=== PATIENT | female | born 1985 | race Caucasian/White ===

== ENCOUNTER 2017-01-08 21:30 | Emergency (ER) | payer OTHER ==
[~2017-01-08] VITALS: Ht 162.6 cm; Wt 65.6 kg
[~2017-01-08 21:30] MED LIST: AMX250CIP PO; AZAT50TA PO; AZTH50T GT; CYCL1DRO2 OP; DICY20TA10 PO; DICY20TA33 PO; DIPH25CA6 PO; DIPH25CA79 PO; DOCU100C8 PO; ERYT400T73 PO; ESCI10TA PO; ESTR1PAT53 TD; ETAN50PE SQ; FLC1T PO; HYDR-229 PO; HYDR-3708 PO; INSASP1U SQ; MAGN400O7 PO; METH10TA40 PO; METH2.5T IM; METO25TA60 PO; MTP25TSR PO; OMEP20CA12 PO; ONDA4TAB8 PO; ONDN4T PO; ORPH100T PO; ORPH30AM2 PO; PRED10TA PO; PRED1TAB PO; PREG100C2 PO; PREG50CA2 PO; PROM12.59 PO; SUMA25TA4 PO; TRAZ-28 PO; TRIA16.5 NS; [UNRECOGNIZED DRUG - CODE] PO; [UNRECOGNIZED DRUG - OTHER]; estrogen
--- OUTSIDE RECORDS SUMMARY | 2017-01-08 21:34 | XMS REPORT | Continuity Of Care Document ---
Author Author [facility] Organization [facility] Address [address] [place] [address] Phone Care Team Providers Care Gis Scientist Name Role Phone ANGEL ALEJANDRO, W Unavailable [phone] MAJOR ALEJANDRO, D AT ALLIE ALEJANDRO, M PP Results Lab Results Visit/Account #[id number] (November 19, 2016 2:29pm - November 19, 2016 6:44pm) Test Result Date/Time POCGL POCGL(70-110 MG/DL) 320 MG/DL November 19, 2016 2:42pm 71 MG/DL November 19, 2016 5:28pm POC PT/INR POC PROTHROMBIN TIME(11.0-13.6) 13.3 November 19, 2016 2:33pm POC INR 1.1 Result Comments: INR reference interval applies to patients on anticoagulant therapy. Suggested INR therapeutic range for oral anticoagulant therapy: (Stabilized anticoagulated patients) Routine Therapy: 2.0 to 3.0 Recurrent Myocardial Infarction: 2.5 to 3.5 Mechanical Prosthetic Valves: 2.5 to 3.5 November 19, 2016 2:33pm COMPLETE BLOOD COUNT WITH DIFF WHITE BLOOD COUNT(4.0-11.0 10E3/UL) 6.4 10E3/UL November 19, 2016 2:33pm RED BLOOD COUNT(4.00-5.20 10E6/UL) 4.49 10E6/UL November 19, 2016 2:33pm HEMOGLOBIN(12.0-16.0 G/DL) 13.8 G/DL November 19, 2016 2:33pm HEMATOCRIT(36.0-46.0 %) 43.7 % November 19, 2016 2:33pm MEAN CORPUSCULAR VOLUME(82.0-100.0 FL) 97.3 FL November 19, 2016 2:33pm MEAN CORPUSCULAR HEMOGLOBIN(26.0-34.0 PG) 30.7 PG November 19, 2016 2:33pm MEAN CORPUSCULAR HGB CONC(31.5-36.5 G/DL) 31.6 G/DL November 19, 2016 2:33pm RED CELL DISTRIBUTION WIDTH(11.5-14.5 %) 13.0 % November 19, 2016 2:33pm 777-3: PLATELET COUNT(150-450 10E3/UL) 222 10E3/UL November 19, 2016 2:33pm MEAN PLATELET VOLUME(8.2-12.4 FL) 9.4 FL November 19, 2016 2:33pm NEUTROPHILS % (AUTO)(40-70 %) 44 % November 19, 2016 2:33pm LYMPHOCYTES % (AUTO)(15-45 %) 48 % November 19, 2016 2:33pm MONOCYTES % (AUTO)(2-10 %) 7 % November 19, 2016 2:33pm EOSINOPHILS % (AUTO)(0-6 %) 1 % November 19, 2016 2:33pm BASOPHILS % (AUTO)(0-1 %) 0 % November 19, 2016 2:33pm IMMATURE GRANS % (AUTO)(0-0 %) 0 % November 19, 2016 2:33pm NUCLEATED RBCS (AUTO)(0-0 %) 0 % November 19, 2016 2:33pm NEUTROPHILS # (AUTO)(2.5-7.5 10E3/UL) 2.8 10E3/UL November 19, 2016 2:33pm LYMPHOCYTES # (AUTO)(1.0-4.0 10E3/UL) 3.1 10E3/UL November 19, 2016 2:33pm MONOCYTES # (AUTO)(0.2-0.8 10E3/UL) 0.4 10E3/UL November 19, 2016 2:33pm EOSINOPHILS # (AUTO)(0.0-0.4 10E3/UL) 0.1 10E3/UL November 19, 2016 2:33pm BASOPHILS # (AUTO)(0.0-0.2 10E3/UL) 0.0 10E3/UL November 19, 2016 2:33pm IMMATURE GRANS # (AUTO)(0.0-0.0 10E3/UL) 0.0 10E3/UL November 19, 2016 2:33pm DIFF TYPE AUTOMATED November 19, 2016 2:33pm ERYTHROCYTE SEDIMENTATION RATE ERYTHROCYTE SEDIMENTATION RATE(0-20 MM/HR) 7 MM/HR November 19, 2016 2:33pm PARTIAL THROMBOPLASTIN TIME PARTIAL THROMBOPLASTIN TIME(22.2-37.4 SEC) 37.1 SEC November 19, 2016 2:33pm COMPLETE METABOLIC PROFILE GLUCOSE(70-110 MG/DL) 300 MG/DL November 19, 2016 2:33pm BLOOD UREA NITROGEN(6-20 MG/DL) 13 MG/DL November 19, 2016 2:33pm CREATININE(0.50-1.20 MG/DL) 0.47 MG/DL November 19, 2016 2:33pm EST GLOMERULAR FILTRATION RATE(Greater than or equal to 60) Greater than or equal to 60 Result Comments: If the patient is of -[place] descent/extraction multiply the eGFR value by 1.212 to obtain the actual eGFR. >=60 mg/dL Normal 30-59 mg/dL Moderate Kidney Disease 15-29 mg/dL Severe Kidney Disease <15 mg/dL Kidney Failure November 19, 2016 2:33pm BUN CREATININE RATIO(10.0-20.0 RATIO) 28.0 RATIO November 19, 2016 2:33pm SODIUM(135-145 MMOL/L) 136 MMOL/L November 19, 2016 2:33pm POTASSIUM(3.6-5.0 MMOL/L) 4.2 MMOL/L November 19, 2016 2:33pm CHLORIDE(101-111 MMOL/L) 99 MMOL/L November 19, 2016 2:33pm CO2(21-31 MMOL/L) 26 MMOL/L November 19, 2016 2:33pm ANION GAP(8-18) 15 November 19, 2016 2:33pm OSMO CALCULATED(270.0-290.0) 283.3 November 19, 2016 2:33pm CALCIUM(8.5-10.5 MG/DL) 8.9 MG/DL November 19, 2016 2:33pm BILIRUBIN,TOTAL(0.1-1.2 MG/DL) 0.8 MG/DL November 19, 2016 2:33pm ALKALINE PHOSPHATASE(42-121 IU/L) 75 IU/L November 19, 2016 2:33pm ASPARTATE AMINO TRANSFERASE(10-42 IU/L) 41 IU/L November 19, 2016 2:33pm ALANINE AMINOTRANSFERASE(10-60 IU/L) 45 IU/L November 19, 2016 2:33pm TOTAL PROTEIN(6.4-8.2 G/DL) 7.3 G/DL November 19, 2016 2:33pm ALBUMIN(3.5-5.5 G/DL) 3.9 G/DL November 19, 2016 2:33pm GLOBULIN(2.4-3.6) 3.4 November 19, 2016 2:33pm ALBUMIN/GLOBULIN RATIO(0.9-1.8 RATIO) 1.1 RATIO November 19, 2016 2:33pm SERUM HCG, QUALITATIVE SERUM HCG, QUALITATIVE(NEGATIVE) NEGATIVE November 19, 2016 2:33pm ALCOHOL ALCOHOL(0.0-5.0 MG/DL) Less than 5.0 MG/DL November 19, 2016 2:33pm Allergies and Adverse Reactions Allergies and Adverse Reactions Patient Unit Number: [id number] Agent Type Reaction Severity Status NO KNOWN ALLERGIES Drug Allergy Unknown Unknown Active Problem List Problem List Visit/Account #[id number] (November 19, 2016 2:29pm - November 19, 2016 6:44pm) Acute Problems: Code/Condition Comments Documented Start Date Documented Resolved Date Code (s) Type 1 diabetes mellitus ICD10: E10.9 Type 1 diabetes mellitus SNOMED: 43672772 Type 1 diabetes mellitus Paresthesia of left upper and lower extremity ICD10: R20.2 Paresthesia of left upper and lower extremity SNOMED: 27193218 Paresthesia of left upper and lower extremity Left facial numbness ICD10: R20.0 Left facial numbness SNOMED: 469486811 Left facial numbness Plan of Care Plan Of Care Visit/Account #[id number] (November 19, 2016 2:29pm - November 19, 2016 6:44pm) Patient Instructions Continue all home medications as prescribed Follow-up with your PCP or neurologist early next week for recheck Return to the ED for worsening symptoms or concerns Vital Signs Vital Signs Visit/Account #[id number] (November 19, 2016 2:29pm - November 19, 2016 6:44pm) Sign First Result Last Result Code(s) Temperature in Fahrenheit Temperature (Fahrenheit): 97.7 [degF] On November 19, 2016 2:27pm Temperature (Fahrenheit): 97.7 [degF] On November 19, 2016 6:44pm 8310-5 Body Temperature Weight in Kilograms Weight (Kilograms): 68.1 kg On November 19, 2016 2:27pm 3141-9 Weight Measured Functional Status Functional and Cognitive Status No Functional Status Data Medications Inpatient/Ordered Medications - Medications administered during hospital visit Visit/Account #[id number] (November 19, 2016 2:29pm - November 19, 2016 6:44pm) Medication Route Sig/Schedule Precondition/Indication Comments/ Instructions Codes TORADOL INJ(KETOROLAC TROMETHAMINE) 30 MG/ML INJECTION Dose: 0.5 ML INTRAVEN NOW 1 ML Ketorolac Tromethamine 30 MG/ML Injection (RxNorm): 1944808 TORADOL INJ (KETOROLAC TROMETHAMINE) NDC: 76372349706 REGLAN INJ(METOCLOPRAMIDE HCL) 5 MG/ML INJECTION Dose: 2 ML INTRAVEN NOW 2 ML Metoclopramide 5 MG/ML Injection (RxNorm): 544001 REGLAN INJ (METOCLOPRAMIDE HCL) NDC: 25610438950 BENADRYL INJ(DiphenhydrAMINE HCL) 50 MG/ML INJECTION Dose: 0.5 ML INTRAVEN NOW Diphenhydramine Hydrochloride 50 MG/ML Injectable Solution (RxNorm): 2435840 BENADRYL INJ (DiphenhydrAMINE HCL) NDC: 15318307893 IV Medication Additives: DEPACON INJ(VALPROATE SOD) 100 MG/ML INJECTION Dose: 750 MG Carriers: SODIUM CHLORIDE 100 ML INJECTION Dose: 100 ML INTRAVEN NOW (Rate: 107.5 MLS/HR Duration: 1 HR) Label Comments: MAY INCREASE FALL RISK WEAR GLOVES WHEN HANDLING. TERATOGENIC. *Do NOT refrigerate* Expires 24 HRS after preparation Additives: Valproic Acid 100 MG/ML Injectable Solution [Depacon] (RxNorm): 5944694 DEPACON INJ (VALPROATE SOD) NDC: 75374500605 Carriers: 100 ML Sodium Chloride 9 MG/ML Injection (RxNorm): 5754790 (SODIUM CHLORIDE) NDC: 07705967195 History Of Encounters Encounters Visit/Account #[id number] (November 19, 2016 2:29pm - November 19, 2016 6:44pm) Account Status Physican Of Record Reason For Visit Visit Diagnosis Start Date/Time Stop Date/Time ER ABRAHAM GONSALVES MD DIZZINESS, NUMBNESS AND TINGLING R53.1: WEAKNESS ICD10 Nov 19, 2016 2:29pm Nov 19, 2016 6:44pm History of Procedures Procedure List No procedures recorded. Discharge Instructions Discharge Instructions Visit/Account #[id number] (November 19, 2016 2:29pm - November 19, 2016 6:44pm) DISCHARGE INSTRUCTIONS Physician Documentation Social History Social History No Social History Data. Immunizations Immunizations Patient Unit Number: [id number] Immunizations No immunizations recorded.
[2017-01-08] MEDS ORDERED: KETOROLAC 60 MG/2 ML (TORADOL) VIAL IM ONE (21:55)
[2017-01-08] MEDS ORDERED: CYCL1DRO2 OP (22:30)
[2017-01-08] MEDS ORDERED: PAMI30VI8 SC (22:30)
[2017-01-08] MEDS ORDERED: AZAT50TA PO ×2 (22:30)
[2017-01-08] MEDS ORDERED: IVIG (22:30)
[2017-01-08] MEDS ORDERED: HYOS0.3710 PO (22:30)
[2017-01-08] MEDS ORDERED: GBPN300C PO ×2 (22:30)
[2017-01-08] MEDS ORDERED: DVL500TSR PO (22:30)
[2017-01-08] MEDS ORDERED: CYCL5TAB PO (22:30)
[2017-01-08] MEDS ORDERED: HYDROXYSUT PO (22:30)
[2017-01-08] MEDS ORDERED: TRIA10.8 NS (22:30)
[2017-01-08 22:32] VITALS: BP 131/80
== END 2017-01-08 22:08 | disposition home or self-care (01) ==
LOC: ED 21:32
DX: G43.909 Migraine, unspecified, not intractable, without status migrainosus (principal)
CPT/HCPCS: 96372; 99282; J1885